=== PATIENT | female | born 1965 | race Caucasian/White ===

== ENCOUNTER 2018-11-17 12:15 | Emergency (ER) | payer BC ==
[~2018-11-17] VITALS: Ht 167.6 cm; Wt 85.0 kg
[~2018-11-17 12:15] MED LIST: BENA5TAB33 PO; METO10TA92 PO; NOL20 PO; OMEP20CA16 PO; ONDA4TAB13 PO; PROM25TA14 PO; RANI150T35 PO; VENL-42 PO
[2018-11-17 12:20] VITALS: Ht 167.6 cm; Wt 85.0 kg
[2018-11-17] MEDS ORDERED: morphine 4 MG/ML VIAL IV STA (13:42)
[2018-11-17] MEDS ORDERED: METOCLOPRAMIDE 10 MG INJ IV STA (13:42)
[2018-11-17] MEDS ORDERED: FAMOTIDINE 20 MG TAB PO STA (13:42)
[2018-11-17] MEDS ORDERED: SOD CHLORIDE 0.9% 1,000 ML IV STA (13:42)
--- NOTE | 2018-11-17 15:43 | ERD ---
ER Documentation Chief Complaint Chief Complaint vomitting, abdominal pain & dizziness last night HPI 53-year-old female with a history of breast cancer status post lumpectomy presenting with epigastric pain with associated nausea and vomiting since last night. She also complains of associated dizziness and tingling in her hands and her feet. She denies any focal weakness, vision disturbance, or significant headaches. She has had some intermittent problems with nausea but it is more severe than usual. No dysuria or hematuria. Denies chest pain or shortness of breath. ROS All systems reviewed and are negative except as per history of present illness. Medications Home Meds Active Scripts Metoclopramide* (Reglan*) 10 Mg Tablet, 10 MG PO Q6 PRN for NAUSEA AND/OR VOM ITING, #10 TAB Prov:AMPARO KAM MD 11/17/18 Reported Medications Ondansetron Hcl* (Zofran*) 4 Mg Tab, 4 MG PO NEEDED PRN for NAUSEA AND OR VOMITING, TAB 11/17/18 Ranitidine Hcl* (Zantac*) 150 Mg Tablet, 150 MG PO HS, #30 TAB 11/17/18 Omeprazole* (Omeprazole*) 20 Mg Capsule.dr, 40 MG PO BID, #60 CAP 11/17/18 Promethazine Hcl* (Phenergan*) 25 Mg Tablet, 25 MG PO DAILY, TAB 11/17/18 Benazepril Hcl* (Benazepril Hcl*) 5 Mg Tablet, 5 MG PO DAILY, #30 TAB 11/17/18 Venlafaxine Hcl* (Venlafaxine Hcl ER*) 37.5 Mg Cap.er.24h, 37.5 MG PO DAILY, CAP 11/17/18 Tamoxifen Citrate* (Tamoxifen Citrate*) 20 Mg Tab, 20 MG PO DAILY, TAB 11/17/18 Allergies Allergies: Coded Allergies: Penicillins (Verified Allergy, Unknown, 11/17/18) PMhx/Soc Medical and Surgical Hx: pt denies Medical Hx, pt denies Surgical Hx Hx Miscellaneous Medical Probl: Yes (L BREAST CANCER) Hx Alcohol Use: No Hx Substance Use: No Hx Tobacco Use: No Smoking Status: Never smoker FmHx Family History: No diabetes Physical Exam Vitals Vital Signs Date Temp Pulse Resp B/P (MAP) Pulse Ox O2 O2 Flow FiO2 Time Delivery Rate 11/17/18 98.2 67 12 127/73 100 Room Air 15:51 (91) 11/17/18 98.2 71 14 110/52 100 Room Air 15:19 (71) 11/17/18 98.2 104 20 126/89 100 12:20 (101) Physical Exam Const: No acute distress Head: Atraumatic Eyes: Normal Conjunctiva, PERRLA, EOMI, no nystagmus ENT: Normal External Ears, Nose and Mouth. Neck: Full range of motion. No meningismus. Resp: Clear to auscultation bilaterally Cardio: Regular rate and rhythm, no murmurs Abd: Soft, non tender, non distended. Normal bowel sounds Skin: No petechiae or rashes Back: No midline or flank tenderness Ext: No cyanosis, or edema Neur: Awake and alert, cranial nerves intact, strength and sensations grossly intact. Normal gait. Psych: Normal Mood and Affect Result Diagram: 11/17/18 1352 11/17/18 1352 Results 24 hrs Laboratory Tests Test 11/17/18 13:52 White Blood Count 6.0 10^3/ul Red Blood Count 4.12 10^6/ul Hemoglobin 12.4 g/dl Hematocrit 37.2 % Mean Corpuscular Volume 90.3 fl Mean Corpuscular Hemoglobin 30.1 pg Mean Corpuscular Hemoglobin Concent 33.3 g/dl Red Cell Distribution Width 12.5 % Platelet Count 180 10^3/UL Mean Platelet Volume 10.6 fl Immature Granulocytes % 0.300 % Neutrophils % 70.2 % Lymphocytes % 22.1 % Monocytes % 7.0 % Eosinophils % 0.2 % Basophils % 0.2 % Nucleated Red Blood Cells % 0.0 /100WBC Immature Granulocytes # 0.020 10^3/ul Neutrophils # 4.2 10^3/ul Lymphocytes # 1.3 10^3/ul Monocytes # 0.4 10^3/ul Eosinophils # 0.0 10^3/ul Basophils # 0.0 10^3/ul Nucleated Red Blood Cells # 0.0 10^3/ul Sodium Level 142 mmol/L Potassium Level 4.0 mmol/L Chloride Level 110 mmol/L Carbon Dioxide Level 24 mmol/L Anion Gap 8 Blood Urea Nitrogen 11 mg/dl Creatinine 0.67 mg/dl Est Glomerular Filtrat Rate mL/min > 60 mL/min Glucose Level 109 mg/dl Calcium Level 9.5 mg/dl Total Bilirubin 0.7 mg/dl Direct Bilirubin 0.00 mg/dl Indirect Bilirubin 0.7 mg/dl Aspartate Amino Transf (AST/SGOT) 23 IU/L Alanine Aminotransferase (ALT/SGPT) 28 IU/L Alkaline Phosphatase 61 IU/L Total Protein 7.3 g/dl Albumin 4.1 g/dl Globulin 3.20 g/dl Albumin/Globulin Ratio 1.28 Lipase 27 U/L Current Medications Medications Dose Sig/Feliberto Start Time Status Last (Trade) Ordered Route PRN Stop Time Admin Dose Reason Admin Sodium 1,000 ml @ Q1H STAT 11/17/18 DC 11/17/18 Chloride 1,000 mls/hr IV 13:42 11/17/18 14:04 14:41 Morphine 4 mg ONCE STAT 11/17/18 DC 11/17/18 Sulfate IV 13:42 11/17/18 14:05 (morphine) 13:45 10 mg ONCE STAT 11/17/18 DC 11/17/18 Metoclopramid IV 13:42 11/17/18 14:04 e HCl 13:45 (Reglan) Famotidine 20 mg ONCE STAT 11/17/18 DC 11/17/18 (Pepcid) PO 13:42 11/17/18 14:05 13:45 Procedures/MDM EMERGENT LABS AND DIAGNOSTIC STUDIES: Lab Results above were reviewed and interpreted by me. CBC: no anemia or evidence of infection CMP: No evidence of clinically significant electrolyte abnormality, acidosis, renal failure, hypoglycemia, liver disease, or biliary obstruction Lipase: no evidence of pancreatitis Radiology Results as interpreted by Radiology below were reviewed by Carmina Kam MD: CT head did not show any acute abnormalities Initial Nursing notes reviewed. Previous Medical Records requested via the Electronic Health Record. EMERGENCY DEPARTMENT COURSE / MEDICAL DECISION MAKING: This is a patient with a history of treated breast cancer presenting with complaints of epigastric abdominal discomfort with nausea and vomiting. Vitals are notable for mild tachycardia. Otherwise vitals unremarkable. There is no evidence of acute surgical abdomen on exam. However given her vague neurologic symptoms along with the vomiting, I did recommend CT of the head to evaluate for any acute abnormalities. In the meantime she was treated with IV fluids and IV antiemetics. CT did not show any significant abnormalities. I reevaluated the patient she did feel much better and did not have any further symptoms. I explained to her that the CT would not rule out any small intracranial lesions and that she would require an MRI to rule that out. Patient understands but feels comfortable going home at this time and following up with her primary doctor for this. If any of her symptoms are to worsen, I did encourage her to return to the ER immediately. Patient's blood pressure was elevated (>120/80) but appears stable without evidence of hypertensive emergency or urgency. The patient was counseled about the risks of hypertension and urged to pursue outpatient monitoring and therapy within a week with their primary care physician. Departure Diagnosis: Primary Impression: Dizziness Additional Impressions: Paresthesia of both feet Paresthesia of both hands Nausea and vomiting Vomiting type: unspecified Vomiting Intractability: non-intractable Qualified Codes: R11.2 - Nausea with vomiting, unspecified Condition: Stable Patient Instructions: Nausea and Vomiting-Adult, Dizziness, Unk Cause, Paraesthesias Additional Instructions: Follow-up with your primary care doctor on Monday and discuss your symptoms. If any of your symptoms worsen, return to the ER immediately. AMPARO KAM MD Nov 17, 2018 15:43
[2018-11-17 15:51] VITALS: BP 127/73; PULSE 67; RESP 12
== END 2018-11-17 15:52 | disposition home or self-care (01) ==
LOC: E/R 12:15
DX: R42 Dizziness and giddiness (principal); R20.2 Paresthesia of skin; R11.2 Nausea with vomiting, unspecified; Z85.3 Personal history of malignant neoplasm of breast
CPT/HCPCS: 36415; 70450; 80053; 83690; 85025; 96374; 96375; 99285; J2270; J2765; J7030; Z7610

== ENCOUNTER 2018-12-14 12:08 | Day surgery (SDC) | payer BC ==
[~2018-12-14] VITALS: Ht 167.6 cm; Wt 79.3 kg
[2018-12-14] VITALS (9 sets, daily range): BP systolic 109–169; BP diastolic 59–76; PULSE 62–75; RESP 10–28; Ht 167.6 cm; Wt 79.3 kg
[~2018-12-14 12:08] MED LIST changes: +MELATONIN; +VITAMIN B12
[2018-12-14] MEDS ORDERED: PROPOFOL 40 ML ONE (14:19)
[2018-12-14] MEDS ORDERED: MIDAZOLAM 1 MG/ML 2 ML INJ ONE (14:20)
[2018-12-14] MEDS ORDERED: PROPOFOL 20 ML ONE ×2 (15:41→16:09)
== END 2018-12-14 18:25 | disposition home or self-care (01) ==
LOC: GIL 12:08
PROVIDERS: ATTEND Internal Medicine Gastroenterology
DX: Z12.11 Encounter for screening for malignant neoplasm of colon (principal); D12.5 Benign neoplasm of sigmoid colon; D12.2 Benign neoplasm of ascending colon; D12.0 Benign neoplasm of cecum; D12.4 Benign neoplasm of descending colon; K29.30 Chronic superficial gastritis without bleeding; K44.9 Diaphragmatic hernia without obstruction or gangrene; K31.9 Disease of stomach and duodenum, unspecified; I10 Essential (primary) hypertension
CPT/HCPCS: 88305; 88312; 88313; J2250